=== PATIENT | female | born 2000 | race Caucasian/White ===

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

== ENCOUNTER 2018-01-13 13:21 | Emergency (ER) | payer MEDICAID ==
[~2018-01-13] VITALS: Ht 154.9 cm; Wt 86.9 kg
[2018-01-13 14:03] LABS: MICROSCOPIC NOT IND
[2018-01-13] MEDS ORDERED: MIRT7.5T8 PO (15:45)
[2018-01-13] MEDS ORDERED: VENL25TA PO (15:46)
[2018-01-13 16:19] LABS: BASOPHILS # (AUTO) 0.03 x10^3/uL (0-0.3); BASOPHILS % (AUTO) 0 % (0-1); EOSINOPHILS # (AUTO) 0.03 x10^3/uL (0-0.8); EOSINOPHILS % (AUTO) 0 % (1-7); LYMPHOCYTES % (AUTO) 22 % (22-44); MD NO; MEAN CORPUSCULAR HEMOGLOBIN 31.3 pg (27.0-34.8); MEAN CORPUSCULAR VOLUME 92.1 fL (80-100); MEAN PLATELET VOLUME 10.1 fL (7.4-10.4); MONOCYTES # (AUTO) 0.66 x10^3/uL (0-1.4); MONOCYTES % (AUTO) 8 % (2-9); NEUTROPHILS # (AUTO) 5.98 x10^3/uL (1.8-8.0); NEUTROPHILS % (AUTO) 70 % (42-75); PLATELET COUNT 217 x10^3/uL (130-400); RED CELL DISTRIBUTION WIDTH 12.3 % (9.6-15.2)
[2018-01-13 16:30] LABS: ALBUMIN 4.3 g/dL (3.4-5.0); ANION GAP 8 mmol/L (5-15); CALCIUM 8.8 mg/dL (8.5-10.1); CHLORIDE 106 mmol/L (98-107)
[2018-01-13] MEDS ORDERED: SODIUM CHLORIDE FLUSH 10ML SYR IVF ONE (16:30)
[2018-01-13 16:37] LABS: ALANINE AMINOTRANSFERASE 63 U/L (12-78); ALKALINE PHOSPHATASE 64 U/L (45-117); BILIRUBIN,TOTAL 0.8 mg/dL (0.2-1.0)
[2018-01-13] MEDS ORDERED: OMNIPAQUE 350 MG/ML, 100ML BOTTLE ONE (17:41)
[2018-01-13 18:59] VITALS: BP 130/86
== END 2018-01-13 19:53 | disposition home or self-care (01) ==
LOC: ED 19:05
DX: R10.31 Right lower quadrant pain (principal); R10.32 Left lower quadrant pain; K21.9 Gastro-esophageal reflux disease without esophagitis; J45.909 Unspecified asthma, uncomplicated
CPT/HCPCS: 36415; 74177; 80053; 81003; 84703; 85025; 99285; Q9967

== ENCOUNTER 2018-02-24 08:51 | Day surgery (SDC) | payer MEDICAID ==
[~2018-02-24] VITALS: Ht 154.9 cm; Wt 85.8 kg
[~2018-02-24 08:51] MED LIST changes: +MIRT7.5T8 PO; +VENL25TA PO
[2018-02-24] MEDS ORDERED: LACTATED RINGERS 1,000 ML IV SCH (10:07)
[2018-02-24] MEDS ORDERED: TYLENOL PM PO (10:11)
[2018-02-24] MEDS ORDERED: PROAIR INH (10:11)
[2018-02-24] MEDS ORDERED: VENL100T PO (10:11)
[2018-02-24 10:16] VITALS: BP 129/88
[2018-02-24 10:25] LABS: HCG UR SG 1.022 (1.003-1.030)
[2018-02-24] MEDS ORDERED: ONABOTULINUMTOXINA 100 UNITS ONE (10:30)
[2018-02-24] MEDS ORDERED: LIDOCAINE-MPF 1%, 2ML INFIL ONE (10:30)
[2018-02-24] MEDS ORDERED: PLEASE ENTER HEIGHT AND WEIGHT MC SCH (10:30)
[2018-02-24] MEDS ORDERED: PROPOFOL 50 ML ONE (10:37)
[2018-02-24] MEDS ORDERED: MIDAZOLAM 1 MG/ML, 2ML ONE (10:37)
[2018-02-24] MEDS ORDERED: KETOROLAC 30 MG/1 ML ONE (11:10)
[2018-02-24] MEDS ORDERED: ONDANSETRON 2MG/ML, 2ML ONE (11:10)
[2018-02-24] MEDS ORDERED: ACETAMINOPHEN 325 MG TABLET PO PRN (12:30)
[2018-02-24] MEDS ORDERED: ONDANSETRON ODT 8 MG PO PRN (12:30)
[2018-02-24] MEDS ORDERED: ALBUTEROL SULFATE 2.5 MG/3 ML NPPB PRN (12:30)
[2018-02-24] MEDS ORDERED: PROMETHAZINE 25 MG/ML, 1ML IV PRN (12:30)
[2018-02-24] MEDS ORDERED: EPHEDRINE 50 MG/ML, 1ML IVPush PRN (12:30)
== END 2018-02-24 14:05 ==
LOC: OUT 08:51
PROVIDERS: ATTEND Internal Medicine Geriatric Medicine
DX: K31.84 Gastroparesis (principal); J45.909 Unspecified asthma, uncomplicated; Z88.8 Allergy status to other drugs, medicaments and biological substances; Z91.010 Allergy to peanuts
CPT/HCPCS: 43236; 81025; J0585; J1885; J2250; J2405; J2704

== ENCOUNTER 2018-03-22 15:52 | Emergency (ER) | payer MEDICAID ==
[~2018-03-22] VITALS: Ht 154.9 cm; Wt 85.5 kg
[~2018-03-22 15:52] MED LIST changes: +PROAIR INH; +TYLENOL PM PO; +VENL100T PO
[2018-03-22 15:54] VITALS: BP 131/89
[2018-03-22 16:38] LABS: BASOPHILS # (AUTO) 0.03 x10^3/uL (0-0.3); BASOPHILS % (AUTO) 0 % (0-1); EOSINOPHILS # (AUTO) 0.03 x10^3/uL (0-0.8); EOSINOPHILS % (AUTO) 0 % (1-7); LYMPHOCYTES % (AUTO) 25 % (22-44); MD NO; MEAN CORPUSCULAR HEMOGLOBIN 30.6 pg (27.0-34.8); MEAN CORPUSCULAR HGB CONC 33.3 g/dL (32.4-35.8); MEAN CORPUSCULAR VOLUME 91.7 fL (80-100); MONOCYTES # (AUTO) 0.45 x10^3/uL (0-1.4); MONOCYTES % (AUTO) 6 % (2-9); NEUTROPHILS % (AUTO) 68 % (42-75); PLATELET COUNT 222 x10^3/uL (130-400); RED BLOOD COUNT 5.04 x10^6/uL (3.82-5.3); RED CELL DISTRIBUTION WIDTH 11.8 % (9.6-15.2)
[2018-03-22 16:43] LABS: ALBUMIN 4.5 g/dL (3.4-5.0); ANION GAP 7 mmol/L (5-15); CALCIUM 9.5 mg/dL (8.5-10.1); CHLORIDE 107 mmol/L (98-107); CREATININE 0.82 mg/dL (0.55-1.02)
[2018-03-22 16:53] LABS: MICROSCOPIC NOT IND
[2018-03-22 17:05] LABS: CULTURE INDICATED? NO
== END 2018-03-22 18:01 | disposition home or self-care (01) ==
LOC: ED 17:06
DX: N93.8 Other specified abnormal uterine and vaginal bleeding (principal); N92.4 Excessive bleeding in the premenopausal period; K62.5 Hemorrhage of anus and rectum; R19.7 Diarrhea, unspecified; K21.9 Gastro-esophageal reflux disease without esophagitis; J45.909 Unspecified asthma, uncomplicated; F41.1 Generalized anxiety disorder
CPT/HCPCS: 36415; 80048; 81003; 82040; 84703; 85025; 99284

== ENCOUNTER 2018-03-31 23:41 | Emergency (ER) | payer MEDICAID ==
[~2018-03-31] VITALS: Ht 154.9 cm; Wt 86.1 kg
[2018-04-01] MEDS ORDERED: ONDANSETRON ODT 4 MG ONE (00:25)
[2018-04-01] MEDS ORDERED: MAALOX/HYOSCYAMINE/LIDOCAINE 45 ML BTL ONE (00:25)
[2018-04-01] MEDS ORDERED: MAALOX/HYOSCYAMINE/LIDOCAINE 45 ML BTL PO ONE (00:30)
[2018-04-01] MEDS ORDERED: ONDANSETRON ODT 4 MG PO ONE (00:30)
[2018-04-01 00:36] LABS: HCG UR SG 1.023 (1.003-1.030); MICROSCOPIC NOT IND
[2018-04-01 00:43] LABS: CULTURE INDICATED? NO
[2018-04-01 00:55] LABS: BASOPHILS % (AUTO) 1 % (0-1); EOSINOPHILS # (AUTO) 0.04 x10^3/uL (0-0.8); EOSINOPHILS % (AUTO) 0 % (1-7); LYMPHOCYTES # (AUTO) 2.45 x10^3/uL (1-6.1); LYMPHOCYTES % (AUTO) 24 % (22-44); MD NO; MEAN CORPUSCULAR HEMOGLOBIN 31.4 pg (27.0-34.8); MEAN CORPUSCULAR VOLUME 92.3 fL (80-100); MEAN PLATELET VOLUME 10.3 fL (7.4-10.4); MONOCYTES # (AUTO) 0.73 x10^3/uL (0-1.4); MONOCYTES % (AUTO) 7 % (2-9); NEUTROPHILS % (AUTO) 68 % (42-75); PLATELET COUNT 208 x10^3/uL (130-400); RED BLOOD COUNT 4.69 x10^6/uL (3.82-5.3); RED CELL DISTRIBUTION WIDTH 12.1 % (9.6-15.2)
[2018-04-01 01:07] LABS: ALANINE AMINOTRANSFERASE 28 U/L (12-78); ALBUMIN 3.9 g/dL (3.4-5.0); ANION GAP 7 mmol/L (5-15); CALCIUM 9.1 mg/dL (8.5-10.1); CHLORIDE 112 mmol/L (98-107); CREATININE 0.93 mg/dL (0.55-1.02)
[2018-04-01 01:09] LABS: ALKALINE PHOSPHATASE 54 U/L (45-117); BILIRUBIN,TOTAL 0.4 mg/dL (0.2-1.0); TOTAL PROTEIN 7.5 g/dL (6.4-8.2)
[2018-04-01] MEDS ORDERED: DICYCLOMINE 10 MG/ML, 2ML IM ONE (01:30)
[2018-04-01 02:13] VITALS: BP 136/84
== END 2018-04-01 02:15 | disposition home or self-care (01) ==
LOC: ED 04-01 00:21
DX: R10.84 Generalized abdominal pain (principal); G89.29 Other chronic pain; K21.9 Gastro-esophageal reflux disease without esophagitis; J45.909 Unspecified asthma, uncomplicated; Z88.8 Allergy status to other drugs, medicaments and biological substances
CPT/HCPCS: 36415; 76700; 80053; 81003; 81025; 83690; 85025; 93005; 99285; Q0162

== ENCOUNTER 2018-04-04 16:38 | Emergency (ER) | payer MEDICAID ==
[~2018-04-04] VITALS: Ht 154.9 cm; Wt 83.6 kg
[2018-04-04] MEDS ORDERED: SODIUM CHLORIDE 0.9% 1,000ML IVBOLUS ONE (17:30)
[2018-04-04] MEDS ORDERED: METOCLOPRAMIDE 5 MG/ML, 2ML IVPush ONE (17:30)
[2018-04-04] MEDS ORDERED: KETOROLAC 30 MG/1 ML IVPush ONE (17:30)
[2018-04-04] MEDS ORDERED: SODIUM CHLORIDE FLUSH 10ML SYR IVF ONE (17:30)
[2018-04-04] MEDS ORDERED: DIPHENHYDRAMINE 50 MG/ML, 1ML IVPush ONE (17:30)
[2018-04-04] MEDS ORDERED: METOCLOPRAMIDE 5 MG/ML, 2ML ONE (17:55)
[2018-04-04] MEDS ORDERED: DIPHENHYDRAMINE 50 MG/ML, 1ML ONE (17:55)
[2018-04-04] MEDS ORDERED: KETOROLAC 30 MG/1 ML ONE (17:55)
[2018-04-04 18:03] LABS: BASOPHILS # (AUTO) 0.03 x10^3/uL (0-0.3); BASOPHILS % (AUTO) 0 % (0-1); EOSINOPHILS # (AUTO) 0.03 x10^3/uL (0-0.8); EOSINOPHILS % (AUTO) 0 % (1-7); LYMPHOCYTES # (AUTO) 1.97 x10^3/uL (1-6.1); LYMPHOCYTES % (AUTO) 22 % (22-44); MD NO; MEAN CORPUSCULAR HGB CONC 34.9 g/dL (32.4-35.8); MEAN CORPUSCULAR VOLUME 91.5 fL (80-100); MEAN PLATELET VOLUME 10.3 fL (7.4-10.4); MONOCYTES # (AUTO) 0.55 x10^3/uL (0-1.4); MONOCYTES % (AUTO) 6 % (2-9); NEUTROPHILS # (AUTO) 6.59 x10^3/uL (1.8-8.0); NEUTROPHILS % (AUTO) 72 % (42-75); PLATELET COUNT 220 x10^3/uL (130-400); RED BLOOD COUNT 4.81 x10^6/uL (3.82-5.3); RED CELL DISTRIBUTION WIDTH 12.5 % (9.6-15.2)
[2018-04-04 18:11] LABS: ALBUMIN 4.3 g/dL (3.4-5.0); ANION GAP 11 mmol/L (5-15); CALCIUM 9.4 mg/dL (8.5-10.1); CHLORIDE 108 mmol/L (98-107)
[2018-04-04 18:14] LABS: ALANINE AMINOTRANSFERASE 46 U/L (12-78); ALKALINE PHOSPHATASE 60 U/L (45-117); BILIRUBIN,TOTAL 0.4 mg/dL (0.2-1.0); CREATININE 0.91 mg/dL (0.55-1.02); TOTAL PROTEIN 8.4 g/dL (6.4-8.2)
[2018-04-04 19:35] VITALS: BP 139/93
== END 2018-04-04 19:37 | disposition home or self-care (01) ==
LOC: ED 17:56
DX: G89.29 Other chronic pain (principal); R10.30 Lower abdominal pain, unspecified; R51 Headache; R11.0 Nausea; H53.8 Other visual disturbances; R42 Dizziness and giddiness
CPT/HCPCS: 36415; 80053; 83690; 85025; 93005; 96374; 96375; 99285; J1200; J1885; J2765; J7030

== ENCOUNTER 2018-05-10 13:19 | Emergency (ER) | payer MEDICAID ==
[~2018-05-10] VITALS: Ht 154.9 cm; Wt 79.5 kg
[2018-05-10] MEDS ORDERED: SODIUM CHLORIDE FLUSH 10ML SYR IVF ONE (14:00)
[2018-05-10] MEDS ORDERED: SODIUM CHLORIDE 0.9% 1,000ML IVBOLUS ONE (14:00)
[2018-05-10] MEDS ORDERED: ONDANSETRON ODT 8 MG PO ONE (14:00)
[2018-05-10] MEDS ORDERED: ONDANSETRON ODT 8 MG ONE (14:08)
[2018-05-10 15:17] LABS: BASOPHILS # (AUTO) 0.05 x10^3/uL (0-0.3); BASOPHILS % (AUTO) 1 % (0-1); EOSINOPHILS # (AUTO) 0.02 x10^3/uL (0-0.8); EOSINOPHILS % (AUTO) 0 % (1-7); LYMPHOCYTES % (AUTO) 30 % (22-44); MD NO; MEAN CORPUSCULAR HEMOGLOBIN 31.1 pg (27.0-34.8); MEAN CORPUSCULAR HGB CONC 34.2 g/dL (32.4-35.8); MEAN CORPUSCULAR VOLUME 90.9 fL (80-100); MEAN PLATELET VOLUME 11.1 fL (7.4-10.4); MONOCYTES # (AUTO) 0.43 x10^3/uL (0-1.4); MONOCYTES % (AUTO) 6 % (2-9); NEUTROPHILS # (AUTO) 4.26 x10^3/uL (1.8-8.0); NEUTROPHILS % (AUTO) 63 % (42-75); PLATELET COUNT 178 x10^3/uL (130-400); RED BLOOD COUNT 4.84 x10^6/uL (3.82-5.3); RED CELL DISTRIBUTION WIDTH 12.5 % (9.6-15.2)
[2018-05-10 15:30] LABS: ALANINE AMINOTRANSFERASE 56 U/L (12-78); ALBUMIN 4.4 g/dL (3.4-5.0); ANION GAP 11 mmol/L (5-15); CALCIUM 9.3 mg/dL (8.5-10.1); CHLORIDE 109 mmol/L (98-107); CREATININE 0.86 mg/dL (0.55-1.02)
[2018-05-10 15:32] LABS: ALKALINE PHOSPHATASE 68 U/L (45-117); BILIRUBIN,TOTAL 0.6 mg/dL (0.2-1.0); TOTAL PROTEIN 7.7 g/dL (6.4-8.2)
[2018-05-10 16:00] VITALS: BP 122/69
== END 2018-05-10 16:19 | disposition home or self-care (01) ==
LOC: ED 14:20
DX: R11.2 Nausea with vomiting, unspecified (principal); G89.29 Other chronic pain; K82.8 Other specified diseases of gallbladder; K21.9 Gastro-esophageal reflux disease without esophagitis; F41.1 Generalized anxiety disorder; J45.909 Unspecified asthma, uncomplicated; R06.00 Dyspnea, unspecified
CPT/HCPCS: 36415; 71045; 76700; 80053; 83690; 85025; 93005; 96360; 99285; J7030; Q0162

== ENCOUNTER 2018-05-14 06:44 | Day surgery (SDC) | payer MEDICAID ==
[~2018-05-14] VITALS: Ht 154.9 cm; Wt 78.9 kg
[~2018-05-14 06:44] MED LIST changes: +ACET-1600 PO; +ALBU8.5H8 INH; +CALC1CAP8 PO; +CHLO4TAB22 PO; +CHOL400T2 PO; +CYAN100072 PO; +LACT1CAP35 PO; +OMEP-110 PO
[2018-05-14] MEDS ORDERED: BUPIVACAINE/PF-EPI 0.5% 1:200K ONE (06:56)
[2018-05-14] MEDS ORDERED: LACTATED RINGERS 1,000 ML IV SCH (07:31)
[2018-05-14 07:34] VITALS: BP 125/87
[2018-05-14] MEDS ORDERED: ACETAMINOPHEN 500 MG TABLET PO ONE (08:00)
[2018-05-14] MEDS ORDERED: ONDANSETRON ODT 8 MG PO ONE (08:00)
[2018-05-14] MEDS ORDERED: SCOPOLAMINE PATCH, 1.5MG PATCH.TD72 TD ONE (08:00)
[2018-05-14] MEDS ORDERED: GABAPENTIN 300 MG CAPSULE PO ONE (08:00)
[2018-05-14] MEDS ORDERED: FENTANYL PF 250 MCG/5ML ONE (08:29)
[2018-05-14] MEDS ORDERED: MIDAZOLAM 1 MG/ML, 2ML ONE (08:29)
[2018-05-14] MEDS ORDERED: LIDOCAINE-MPF 2% ,5ML ONE (09:12)
[2018-05-14] MEDS ORDERED: LIDOCAINE 4%, 4 ML SYR/CANN TP ONE (09:12)
[2018-05-14] MEDS ORDERED: PROMETHAZINE 25 MG/ML, 1ML IV PRN (09:30)
[2018-05-14] MEDS ORDERED: ONDANSETRON ODT 8 MG PO PRN (09:30)
[2018-05-14] MEDS ORDERED: MORPHINE SULFATE 4 MG/ML, 1ML IVPush PRN (09:30)
[2018-05-14] MEDS ORDERED: OXYcodone 5 MG/5 ML ORAL.SOL UDC PO PRN (09:30)
[2018-05-14] MEDS ORDERED: ONDANSETRON 2MG/ML, 2ML IV PRN (09:30)
[2018-05-14] MEDS ORDERED: NEOSTIGMINE 1 MG/ML, 10ML ONE (09:46)
[2018-05-14] MEDS ORDERED: CEFAZOLIN 1,000 MG ONE (09:46)
[2018-05-14] MEDS ORDERED: DEXAMETHASONE 4 MG/ML, 1ML ONE (09:46)
[2018-05-14] MEDS ORDERED: PROPOFOL 10 MG/ML, 20ML ONE (09:46)
[2018-05-14] MEDS ORDERED: GLYCOPYRROLATE 0.2MG/1ML, 5ML ONE (09:46)
[2018-05-14] MEDS ORDERED: ONDANSETRON 2MG/ML, 2ML ONE (09:46)
[2018-05-14] MEDS ORDERED: ROCURONIUM 10MG/ML,5ML ONE (09:46)
[2018-05-14] MEDS ORDERED: SUCCINYLCHOLINE 20 MG/ML, 10ML ONE (09:46)
[2018-05-14] MEDS ORDERED: OXYcodone 5 MG/5 ML ORAL.SOL UDC ONE (10:43)
[2018-05-14] MEDS ORDERED: FENTANYL PF 100 MCG/2ML ONE (10:43)
[2018-05-14] MEDS: FENTANYL PF 100 MCG/2ML IV PRN ×2 (10:45→11:00)
[2018-05-14] MEDS ORDERED: LORazepam 0.5MG TABLET PO ONE (13:30)
== END 2018-05-14 15:35 | disposition home or self-care (01) ==
LOC: OUT 06:44 → EDSTATUS 09:30 → OUT 15:35
PROVIDERS: ATTEND Surgery
DX: K82.8 Other specified diseases of gallbladder (principal); J45.909 Unspecified asthma, uncomplicated; K21.9 Gastro-esophageal reflux disease without esophagitis; Z79.899 Other long term (current) drug therapy; Z88.8 Allergy status to other drugs, medicaments and biological substances; Z91.010 Allergy to peanuts
CPT/HCPCS: 47562; 81025; 88304; 93005; J0330; J0690; J1100; J2250; J2405; J2704; J2710; J3010; J3490; J7120; Q0162

== ENCOUNTER 2019-12-20 09:05 | Emergency (ER) | payer MEDICAID ==
[~2019-12-20] VITALS: Ht 154.9 cm; Wt 88.0 kg
[2019-12-20 09:20] VITALS: BP 143/88
--- NOTE | 2019-12-20 09:43 | NUR ---
PT PRESENTED TO ED D/T BILATERAL BACK PAIN SINCE LAST NIGHT. PT DENIES URINARY SYMPTOMS. PT STATES "I FEEL BLOTTED AND NAUSEATED." PT WAS TESTED FOR RUSSELL VIRUS ON FRIDAY. PT STATES "THEY CALLED ME THIS MORNING BUT I MISSED THE PHONE CALL." PT ASKED IF RN CAN CALL AND OBTAIN RESULTS.
[2019-12-20] MEDS ORDERED: VENL25TA PO (09:44)
--- NOTE | 2019-12-20 09:54 | NUR ---
RN PROVIDED PT WITH A URINE COLLECTION CUP. PT AMBULATED TO BATHROOM WITH A STEADY GAIT.
[2019-12-20 10:16] LABS: MICROSCOPIC NOT IND
[2019-12-20 10:18] LABS: BASOPHILS # (AUTO) 0.03 x10^3/uL (0-0.1); BASOPHILS % (AUTO) 0 % (0-1); EOSINOPHILS # (AUTO) 0.05 x10^3/uL (0-0.4); EOSINOPHILS % (AUTO) 1 % (1-7); LYMPHOCYTES # (AUTO) 2.47 x10^3/uL (1-3.4); LYMPHOCYTES % (AUTO) 25 % (22-44); MD NO; MEAN CORPUSCULAR HEMOGLOBIN 31.2 pg (27.0-34.8); MEAN CORPUSCULAR HGB CONC 33.6 g/dL (32.4-35.8); MEAN CORPUSCULAR VOLUME 92.9 fL (80-100); MEAN PLATELET VOLUME 9.8 fL (7.4-10.4); MONOCYTES # (AUTO) 0.62 x10^3/uL (0.2-0.8); MONOCYTES % (AUTO) 6 % (2-9); NEUTROPHILS # (AUTO) 6.71 x10^3/uL (1.8-6.8); NEUTROPHILS % (AUTO) 68 % (42-75); PLATELET COUNT 242 x10^3/uL (130-400); RED BLOOD COUNT 4.98 x10^6/uL (3.82-5.3); RED CELL DISTRIBUTION WIDTH 12.3 % (9.6-15.2)
[2019-12-20 10:23] LABS: CULTURE INDICATED? NO
[2019-12-20 10:26] LABS: ANION GAP 7 mmol/L (5-15); CALCIUM 9.4 mg/dL (8.5-10.1); CHLORIDE 110 mmol/L (98-107); CREATININE 0.83 mg/dL (0.55-1.02)
== END 2019-12-20 11:20 | disposition home or self-care (01) ==
LOC: ED 09:45
DX: S39.012A Strain of muscle, fascia and tendon of lower back, initial encounter (principal); B34.9 Viral infection, unspecified; J45.909 Unspecified asthma, uncomplicated; K21.9 Gastro-esophageal reflux disease without esophagitis; Z88.8 Allergy status to other drugs, medicaments and biological substances; X58.XXXA Exposure to other specified factors, initial encounter; Y93.89 Activity, other specified; Y92.89 Other specified places as the place of occurrence of the external cause; Y99.8 Other external cause status
CPT/HCPCS: 36415; 71045; 80048; 81003; 84703; 85025; 99284

== ENCOUNTER 2020-01-14 16:43 | Emergency (ER) | payer MEDICAID ==
[~2020-01-14] VITALS: Ht 154.9 cm; Wt 85.4 kg
--- NOTE | 2020-01-14 17:20 | NUR ---
THIS IS A 19 YO FEMALE COMING IN FOR STERNAL CHEST PAIN RADIATING TO LEFT LATERAL RIB, "MY LUNGS FEEL TIGHT", CHILLS, N/D/ VOMIT X1 EPISODE LAST NOC. DENIES COUGH OR FEVERS AT HOME. PATIENT WAS TESTED FOR COVID 1 MONTH AGO AND WAS NEGATIVE. EKG DONE IN [place], RESPIRATIONS ARE EVEN AND UNLABORED, LUNG SOUNDS CLEAR THROUGHOUT, ALL MONITORING IN PLACE, SINUS TACHYCARDIC IN THE 120'S ON MONITOR. ALL OTHER VSS, NAD AT THIS TIME, CALL LIGHT IN REACH
[2020-01-14] MEDS ORDERED: SODIUM CHLORIDE 0.9% 1,000ML IVBOLUS ONE ×2 (17:30→20:00)
[2020-01-14] MEDS ORDERED: ONDANSETRON 2MG/ML, 2ML IVPush ONE (17:30)
[2020-01-14] MEDS ORDERED: SODIUM CHLORIDE FLUSH 10ML SYR IVF ONE (17:30)
[2020-01-14] MEDS ORDERED: ONDANSETRON 2MG/ML, 2ML ONE (17:36)
--- NOTE | 2020-01-14 18:11 | NUR ---
PIV PLACED, LABS DRAWN AND SENT TO LAB, PATIENT MEDICATED PER EMAR, IVF RUNNING, UA COLLECTED AND SENT
--- NOTE | 2020-01-14 18:12 | NUR ---
PATIENT UNABLE TO STOOL AT THIS TIME
[2020-01-14 18:14] LABS: BASOPHILS # (AUTO) 0.04 x10^3/uL (0-0.1); BASOPHILS % (AUTO) 0 % (0-1); EOSINOPHILS # (AUTO) 0.01 x10^3/uL (0-0.4); EOSINOPHILS % (AUTO) 0 % (1-7); LYMPHOCYTES # (AUTO) 1.97 x10^3/uL (1-3.4); LYMPHOCYTES % (AUTO) 20 % (22-44); MD NO; MEAN CORPUSCULAR HEMOGLOBIN 31.2 pg (27.0-34.8); MEAN CORPUSCULAR HGB CONC 33.9 g/dL (32.4-35.8); MEAN CORPUSCULAR VOLUME 91.8 fL (80-100); MEAN PLATELET VOLUME 9.8 fL (7.4-10.4); MONOCYTES % (AUTO) 6 % (2-9); NEUTROPHILS # (AUTO) 7.45 x10^3/uL (1.8-6.8); NEUTROPHILS % (AUTO) 74 % (42-75); PLATELET COUNT 235 x10^3/uL (130-400); RED CELL DISTRIBUTION WIDTH 12.2 % (9.6-15.2)
[2020-01-14 18:22] LABS: ALANINE AMINOTRANSFERASE 26 U/L (12-78); ANION GAP 6 mmol/L (5-15); CHLORIDE 109 mmol/L (98-107); CREATININE 0.85 mg/dL (0.55-1.02); T4 (THYROXINE) 10.3 mcg/dL (4.8-13.9)
--- NOTE | 2020-01-14 18:25 | NUR ---
LAB TO REDRAW BLUE TOP FOR DDIMER
[2020-01-14 18:27] LABS: ALKALINE PHOSPHATASE 83 U/L (45-117); BILIRUBIN,TOTAL 0.5 mg/dL (0.2-1.0); TROPONIN I < 0.015 ng/mL (0.000-0.045)
[2020-01-14 18:30] LABS: MICROSCOPIC NOT IND
--- NOTE | 2020-01-14 18:30 | NUR ---
LAB TO ROOM FOR REDRAW
[2020-01-14 18:33] LABS: CULTURE INDICATED? NO
--- NOTE | 2020-01-14 19:26 | NUR ---
PATIENT RESTING ON GURNEY, RESPIRATIONS EVEN AND UNLABORED, VSS AT THIS TIME, DENIES NEEDS. PATIETN STILL UNABLE TO STOOL AT THIS TIME
--- NOTE | 2020-01-14 20:00 | NUR ---
LUCY CASTRO TO ROOM FOR RECHECK
[2020-01-14 20:09] VITALS: BP 112/76
== END 2020-01-14 20:40 | disposition home or self-care (01) ==
LOC: ED 19:24
DX: B34.9 Viral infection, unspecified (principal); R19.7 Diarrhea, unspecified; R06.00 Dyspnea, unspecified; R07.89 Other chest pain; R00.0 Tachycardia, unspecified; K21.9 Gastro-esophageal reflux disease without esophagitis; J45.909 Unspecified asthma, uncomplicated
CPT/HCPCS: 36415; 71045; 80053; 81003; 84436; 84443; 84484; 84703; 85025; 85379; 93005; 96361; 96374; 99285; J2405; J7030

== ENCOUNTER 2020-05-13 23:15 | Emergency (ER) | payer MEDICAID ==
[~2020-05-13] VITALS: Ht 154.9 cm; Wt 91.0 kg
[2020-05-14] MEDS ORDERED: DIPHENHYDRAMINE 50 MG/ML, 1ML IVPush ONE (02:00)
[2020-05-14] MEDS ORDERED: SODIUM CHLORIDE 0.9% 1,000ML IVBOLUS ONE (02:00)
[2020-05-14] MEDS ORDERED: PROCHLORPERAZINE 5 MG/ML, 2ML IVPush ONE (02:00)
[2020-05-14] MEDS ORDERED: KETOROLAC 30 MG/1 ML IVPush ONE (02:00)
[2020-05-14] MEDS ORDERED: SODIUM CHLORIDE FLUSH 10ML SYR IVF ONE (02:00)
[2020-05-14] MEDS ORDERED: PROCHLORPERAZINE 5 MG/ML, 2ML ONE (02:06)
[2020-05-14] MEDS ORDERED: DIPHENHYDRAMINE 50 MG/ML, 1ML ONE (02:06)
[2020-05-14] MEDS ORDERED: KETOROLAC 30 MG/1 ML ONE (02:06)
[2020-05-14 02:36] LABS: MICROSCOPIC NOT IND
[2020-05-14 02:43] LABS: MEAN CORPUSCULAR HEMOGLOBIN 30.7 pg (27.0-34.8); MEAN CORPUSCULAR HGB CONC 33.7 g/dL (32.4-35.8); MEAN PLATELET VOLUME 10.1 fL (7.4-10.4); PLATELET COUNT 257 x10^3/uL (130-400); RED BLOOD COUNT 4.93 x10^6/uL (3.82-5.3)
[2020-05-14 02:45] LABS: ALBUMIN 4.1 g/dL (3.4-5.0); ANION GAP 6 mmol/L (5-15); CALCIUM 9.1 mg/dL (8.5-10.1); CHLORIDE 109 mmol/L (98-107)
[2020-05-14 02:51] LABS: ALANINE AMINOTRANSFERASE 26 U/L (12-78); ALKALINE PHOSPHATASE 78 U/L (45-117); BILIRUBIN,TOTAL 0.5 mg/dL (0.2-1.0); CREATININE 0.82 mg/dL (0.55-1.02); TOTAL PROTEIN 7.7 g/dL (6.4-8.2)
--- NOTE | 2020-05-14 02:51 | NUR ---
Break RN: Attempted to medicate patient per mar however patient states her CLARKE is getting better. Patient refused meds at this time.
[2020-05-14 03:02] LABS: BASOPHILS # (AUTO) 0.03 x10^3/uL (0-0.1); BASOPHILS % (AUTO) 0 % (0-1); EOSINOPHILS # (AUTO) 0.05 x10^3/uL (0-0.4); EOSINOPHILS % (AUTO) 0 % (1-7); LYMPHOCYTES # (AUTO) 2.07 x10^3/uL (1-3.4); LYMPHOCYTES % (AUTO) 15 % (22-44); MD SCAN; MONOCYTES # (AUTO) 0.57 x10^3/uL (0.2-0.8); MONOCYTES % (AUTO) 4 % (2-9); NEUTROPHILS # (AUTO) 10.94 x10^3/uL (1.8-6.8); NEUTROPHILS % (AUTO) 80 % (42-75)
[2020-05-14 03:37] VITALS: BP 122/74
== END 2020-05-14 03:39 | disposition home or self-care (01) ==
LOC: ED 05-14 02:31
DX: R51 Headache (principal); R10.84 Generalized abdominal pain; K21.9 Gastro-esophageal reflux disease without esophagitis; R11.2 Nausea with vomiting, unspecified
CPT/HCPCS: 36415; 80053; 81003; 84703; 85025; 96360; 99283; J7030

== ENCOUNTER 2020-06-09 19:24 | Emergency (ER) | payer MEDICAID ==
[~2020-06-09] VITALS: Ht 154.9 cm; Wt 90.6 kg
[2020-06-09] MEDS ORDERED: SODIUM CHLORIDE FLUSH 10ML SYR IVF ONE (20:30)
[2020-06-09] MEDS ORDERED: SODIUM CHLORIDE 0.9% 1,000ML IVBOLUS ONE (20:30)
[2020-06-09 21:18] LABS: MICROSCOPIC NOT IND
[2020-06-09 21:58] LABS: BASOPHILS % (AUTO) 1 % (0-1); EOSINOPHILS % (AUTO) 0 % (1-7); LYMPHOCYTES % (AUTO) 28 % (22-44); MEAN CORPUSCULAR HEMOGLOBIN 30.3 pg (27.0-34.8); MEAN CORPUSCULAR HGB CONC 33.5 g/dL (32.4-35.8); MEAN PLATELET VOLUME 9.9 fL (7.4-10.4); MONOCYTES % (AUTO) 8 % (2-9); NEUTROPHILS % (AUTO) 64 % (42-75); PLATELET COUNT 246 x10^3/uL (130-400); RED BLOOD COUNT 5.15 x10^6/uL (3.82-5.3); RED CELL DISTRIBUTION WIDTH 12.7 % (9.6-15.2)
[2020-06-09 22:06] LABS: MD NO
[2020-06-09 22:10] LABS: ALBUMIN 4.4 g/dL (3.4-5.0); ANION GAP 7 mmol/L (5-15); CALCIUM 9.7 mg/dL (8.5-10.1); CHLORIDE 108 mmol/L (98-107)
[2020-06-09 22:16] LABS: ALANINE AMINOTRANSFERASE 30 U/L (12-78); ALKALINE PHOSPHATASE 74 U/L (45-117); BILIRUBIN,TOTAL 0.5 mg/dL (0.2-1.0); TOTAL PROTEIN 7.9 g/dL (6.4-8.2)
[2020-06-09 22:31] VITALS: BP 132/78
--- NOTE | 2020-06-09 22:32 | NUR ---
PT RESTING IN BED, PT A/O X4 AND ON MONITOR. PT DENIED ANY WANTS OR NEEDS AT THIS TIME. RN WILL CONTINUE TO MONITOR PT VITALS
--- NOTE | 2020-06-09 22:54 | NUR ---
PT AMBULATED WITH STEADY GAIT
== END 2020-06-09 23:22 | disposition home or self-care (01) ==
LOC: ED 23:19
DX: G43.909 Migraine, unspecified, not intractable, without status migrainosus (principal); R42 Dizziness and giddiness; R19.7 Diarrhea, unspecified; R10.9 Unspecified abdominal pain; R07.89 Other chest pain; R11.0 Nausea; K21.9 Gastro-esophageal reflux disease without esophagitis; J45.909 Unspecified asthma, uncomplicated; Z90.49 Acquired absence of other specified parts of digestive tract
CPT/HCPCS: 36415; 80053; 81003; 83690; 84703; 85025; 93005; 96360; 96361; 99284; J7030